=== PATIENT | male | born 1990 | race Caucasian/White ===

== ENCOUNTER 2021-12-06 13:57 | Emergency (ER) | payer OTHER ==
[2021-12-06] MEDS ORDERED: DEXAMETHASONE SOD PHOSPHATE 10 MG/ML 1 ML VIAL IM STA (15:23)
[2021-12-06] MEDS ORDERED: methocarbamoL 500 MG TAB PO ONE (15:23)
--- NOTE | 2021-12-06 16:17 | XR ---
EXAMINATION TYPE: XR cervical spine comp DATE OF EXAM: 12/06/2021 3:34 PM INDICATION: Patient age:Male; 31 years old; Reason for study: Pain; COMPARISON: None TECHNIQUE: The cervical spine was imaged in 4 projections AP lateral and bilateral obliques. FINDINGS: There is straightening of the normal cervical alignment. No evidence of acute fracture. The neural fo ramen are grossly patent. The odontoid process is intact. Visualized portions of the lungs and soft t issues are unremarkable. IMPRESSION: 1. No fracture or dislocation. 2. Straightening of the cervical alignment.
--- NOTE | 2021-12-06 16:38 | ED ---
Neck Injury/Pain HPI - General Chief Complaint: Neck Pain/Injury Stated Complaint: Neck/arm pain/numbness Time Seen by Provider: 12/06/21 15:19 Mode of arrival: ambulatory Limitations: no limitations - History of Present Illness Initial Comments: This is a 31-year-old male who presents to the emergency department for neck pain and right arm numbness/tingling. Patient states that this has been present for about a week. He did have similar symptoms years ago and went to a chiropractor. He found no relief with a chiropractor, but states that the symptoms ended up resolving on their own. He has never been evaluated by neurology or neurosurgery. He tried taking some of his 's Flexeril without any relief and has also tried taking ibuprofen and Tylenol, which are also not improving his symptoms. States that the numbness in the right arm is worse when he bends down. Denies any fevers, chills, sore throat, cough, dyspnea, chest pain, palpitations, abdominal pain, nausea, vomiting, diarrhea, back pain, or headaches. MD Complaint: neck pain Onset/Timin -: week(s) - Related Data Previous Rx's Medication Instructions Recorded methocarbamoL [Robaxin] 1,500 mg PO QID PRN #20 tab 12/06/21 predniSONE 50 mg PO QAM 5 Days #5 tablet 12/06/21 Allergies Allergy/AdvReac Type Severity Reaction Status Date / Time No Known Allergies Allergy Verified 12/06/21 14:33 Review of Systems ROS Statement: Those systems with pertinent positive or pertinent negative responses have been documented in the HPI. ROS Other: All systems not noted in ROS Statement are negative. Past Medical History Past Medical History: No Reported History History of Any Multi-Drug Resistant Organisms: None Reported Past Surgical History: Orthopedic Surgery Additional Past Surgical History / Comment(s): knee surgery Past Psychological History: No Psychological Hx Reported Smoking Status: Vaper Past Alcohol Use History: None Reported Past Drug Use History: None Reported General Exam Limitations: no limitations General appearance: alert, in no apparent distress Head exam: Present: atraumatic, normocephalic, normal inspection Neck exam: Present: normal inspection, full ROM, other (Negative axial loading of the C-spine). Absent: tenderness, meningismus, lymphadenopathy Respiratory exam: Present: normal lung sounds bilaterally. Absent: respiratory distress, wheezes, rales, rhonchi, stridor Cardiovascular Exam: Present: regular rate, normal rhythm, normal heart sounds. Absent: systolic murmur, diastolic murmur, rubs, gallop, clicks Neurological exam: Present: alert, oriented X3, CN II-XII intact Psychiatric exam: Present: normal affect, normal mood Skin exam: Present: warm, dry, intact, normal color. Absent: rash Course Vital Signs 12/06/21 12/06/21 14:30 16:50 Temperature 98.4 F 98.8 F Pulse Rate 72 78 Respiratory 16 18 Rate Blood Pressure 120/58 121/68 O2 Sat by Pulse 98 98 Oximetry Medical Decision Making - Medical Decision Making This is a 31-year-old male who presents emergency department for neck pain. Cervical spine x-ray obtained revealing no acute abnormalities. Patient given IM Decadron and Robaxin. She noted minimal relief after medication treatment. Discussed that this may be related to swelling in the neck causing cervical impingement. Prescription for prednisone and Robaxin sent to the pharmacy. Advised to avoid taking other anti-inflammatories with the prednisone, and to begin taking antiinflammatories after he finishes the prednisone. He can take Tylenol with both the prednisone and other anti-inflammatories. The Robaxin can be taken 3-4 times daily. Advised him that this may make him sleepy/groggy and he should avoid taking it if he plans on driving or leaving the house. Return precautions reviewed in depth, the patient is instructed to return to the emergency department with any new, worsening, or concerning symptoms. Patient verbalized understanding. This case was discussed in detail with the attending ED physician. Presentation, findings, and treatment plan discussed in detail as well. - Radiology Data Radiology results: report reviewed, image reviewed Disposition Clinical Impression: Cervical nerve root impingement Disposition: HOME SELF-CARE Instructions (If sedation given, give patient instructions): Cervical Strain (ED), Cervical Radiculopathy (ED), Neck Pain (ED) Additional Instructions: Return to the emergency department with any new, worsening, or concerning symptoms. Take the prednisone for 5 days. Do not take ibuprofen or any other anti-inflammatories with this. After finishing the prednisone, begin taking other anti-inflammatories again. Take Tylenol with the prednisone and anti- inflammatories. You can take the muscle relaxer, Robaxin, up to 4 times daily. If it makes you sleepy/groggy, do not take it when you plan to drive or leave home. Prescriptions: predniSONE 50 mg PO QAM 5 Days #5 tablet methocarbamoL [Robaxin] 1,500 mg PO QID PRN #20 tab PRN Reason: Pain Is patient prescribed a controlled substance at d/c from ED?: No Referrals: Nonstaff,Physician [Primary Care Provider] - 1-2 days
[2021-12-06 16:51] VITALS: BP 121/68; PULSE 78; RESP 18; TEMP 98.8
== END 2021-12-06 16:50 | disposition home or self-care (01) ==
LOC: EC 13:57
DX: M54.2 Cervicalgia (principal); F17.209 Nicotine dependence, unspecified, with unspecified nicotine-induced disorders
CPT/HCPCS: 72050; 99283; 96372; J1100

== ENCOUNTER 2022-07-11 09:34 | Emergency (ER) | payer OTHER ==
[2022-07-11 09:41] VITALS: RESP 16; TEMP 98.1
[2022-07-11] MEDS ORDERED: ACET/COD 300 MG/30 MG STARTER PACK 6 TAB BTL PO STA (10:08)
[2022-07-11] MEDS ORDERED: KETOROLAC 15 MG/ML 1 ML VIAL IM STA (10:08)
[2022-07-11] MEDS ORDERED: AMOXIC-POT CLAV 875MG STARTER PACK 2 TAB BTL PO STA (10:08)
[2022-07-11] MEDS ORDERED: LIDOCAINE VISCOUS 2% 15 ML CUP MUCOUS MEM ONE (10:08)
--- NOTE | 2022-07-11 10:48 | ED ---
ENT HPI - General Chief complaint: Dental/Oral Stated complaint: Dental issue Time Seen by Provider: 07/11/22 09:43 Source: patient Mode of arrival: ambulatory Limitations: no limitations - History of Present Illness Initial comments: 31-year-old male patient presents the emergency department for evaluation of left lower dental pain and swelling. Patient states he's had symptoms for the last 3 days. He feels that there is an abscess present. States he has been taking ibuprofen with minimal relief. Denies any fever or chills. Denies any trismus or difficulty swallowing. States he has had trouble with his teeth in the past. He has not yet been to see a dentist. - Related Data Previous Rx's Medication Instructions Recorded methocarbamoL [Robaxin] 1,500 mg PO QID PRN #20 tab 12/06/21 predniSONE 50 mg PO QAM 5 Days #5 tablet 12/06/21 Amoxic-Pot Clav 875-125Mg 1 tab PO Q12HR #20 tablet 07/11/22 [Augmentin 875-125] Allergies Allergy/AdvReac Type Severity Reaction Status Date / Time No Known Allergies Allergy Verified 07/11/22 09:39 Review of Systems ROS Statement: Those systems with pertinent positive or pertinent negative responses have been documented in the HPI. ROS Other: All systems not noted in ROS Statement are negative. Past Medical History Past Medical History: No Reported History History of Any Multi-Drug Resistant Organisms: None Reported Past Surgical History: Orthopedic Surgery Additional Past Surgical History / Comment(s): knee surgery Past Psychological History: No Psychological Hx Reported Smoking Status: Vaper Past Alcohol Use History: None Reported Past Drug Use History: None Reported General Exam Limitations: no limitations General appearance: alert, in no apparent distress, other (This is a well- developed, well-nourished adult male in no acute distress.) ENT exam: Present: normal oropharynx, mucous membranes moist, other (There is poor dentition with multiple broken teeth. Left tooth numbers 18 and 19 are fractured, extensive dental caries, with evidence of abscess over the nuchal surface.). Absent: normal exam Respiratory exam: Present: normal lung sounds bilaterally. Absent: respiratory distress, wheezes, rales, rhonchi, stridor Cardiovascular Exam: Present: regular rate, normal rhythm, normal heart sounds. Absent: systolic murmur, diastolic murmur, rubs, gallop, clicks Neurological exam: Present: alert, oriented X3, CN II-XII intact Psychiatric exam: Present: normal affect, normal mood Skin exam: Present: warm, dry, intact, normal color. 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 Physical examination did reveal poor dentition with extensive dental caries and abscess to the periapical space of teeth #18 and 19. Plan was to drain the abscess however after applying lidocaine pledget the abscess spontaneously ruptured and was draining pus and blood. Patient was given first dose of Augmentin and Tylenol with Codeine here. He'll be discharged with prescription for Augmentin. Instructed to follow up with dentistry as soon as possible. He verbalizes understanding and agrees with this plan. Was pt. sent in by a medical professional or institution (JEN Joseph, QUALITY ASSURANCE INTERN, urgent care, hospital, or [facility]...) When possible be specific @ -[No] Did you speak to anyone other than the patient for history (EMS, parent, family, police, friend...)? What history was obtained from this source @ -[No] Did you review nursing and triage notes (agree or disagree)? Why? @ -[I reviewed and agree with nursing and triage notes] Were old charts reviewed (outside hosp., previous admission, EMS record, old EKG, old radiological studies, urgent care reports/EKG's, [facility] records)? Report findings @ -[No old charts were reviewed] Differential Diagnosis (chest pain, altered mental status, abdominal pain women, abdominal pain men, vaginal bleeding, weakness, fever, dyspnea, syncope, headache, dizziness, GI bleed, back pain, seizure, CVA, palpatations, mental health)? @ -[not applicable] EKG interpreted by me (3pts min.). @ -[As above] X-rays interpreted by me (1pt min.). @ -[None done] CT interpreted by me (1pt min.). @ -[None done] U/S interpreted by me (1pt. min.). @ -[None done] What testing was considered but not performed or refused? (CT, X-rays, U/S, labs)? Why? @ -[None] What meds were considered but not given or refused? Why? @ -[None] Did you discuss the management of the patient with other professionals (professionals i.e. , PA, QUALITY ASSURANCE INTERN, lab, RT, psych nurse, drug abuse social worker, ticket printer, teacher, credit risk review officer, caser)? Give summary @ -My attending physician Dr. Parry. Was smoking cessation discussed for >3mins.? @ -[No] Was critical care preformed (if so, how long)? @ -[No] Were there social determinants of health that impacted care today? How? (Homelessness, low income, unemployed, alcoholism, drug addiction, transportation, low edu. Level, literacy, decrease access to med. care, intermediate, rehab)? @ -[No] Was there de-escalation of care discussed even if they declined (Discuss DNR or withdrawal of care, Hospice)? DNR status @ -[No] What co-morbidities impacted this encounter? (DM, HTN, Smoking, COPD, CAD, Cancer, CVA, ARF, Chemo, Hep., AIDS, mental health diagnosis, sleep apnea, morbid obesity)? @ -[None] Was patient admitted / discharged? Hospital course, mention meds given and route , prescriptions, significant lab abnormalities, going to OR and other pertinent info. @ -Discharged home to follow up with dentistry. Did provide low/no cost options in case he does not have insurance coverage. Given starter pack of Augmentin and Tylenol #3. Given prescription for Augmentin. Instructed to follow up as soon as possible with dentist. Undiagnosed new problem with uncertain prognosis? @ -[No] Drug Therapy requiring intensive monitoring for toxicity (Heparin, Nitro, Insulin, Cardizem)? @ -[No] Were any procedures done? @ -[No] Diagnosis/symptom? @ -Dental abscess Acute, or Chronic, or Acute on Chronic? @ -Acute Uncomplicated (without systemic symptoms) or Complicated (systemic symptoms)? @ -Uncomplicated. Side effects of treatment? @ -[No] Exacerbation, Progression, or Severe Exacerbation? @ -[No] Poses a threat to life or bodily function? How? (Chest pain, [place], [place], pneumonia, PE, COPD, DKA, ARF, appy, cholecystitis, CVA, Diverticulitis, Homicidal, Suicidal, threat to staff... and all critical care pts) @ -[No] Disposition Clinical Impression: Dental abscess Disposition: HOME SELF-CARE Condition: Good Instructions (If sedation given, give patient instructions): Dental Abscess (ED) Additional Instructions: Complete antibiotic prescription in full. Alternate Tylenol and Motrin for pain control. Use pain medication given in ER sparingly for severe pain. Follow up with PCP and dentist as soon as possible. Return to ER for any new, worsening, or concerning symptoms. Please follow up with the [facility] dental clinic. [facility] [place] [address]. Phone number for new patients or [phone] for existing patients. [facility]. Must pay for x-rays then services are free. Call for an appoitnment. Prescriptions: Amoxic-Pot Clav 875-125Mg [Augmentin 875-125] 1 tab PO Q12HR #20 tablet Is patient prescribed a controlled substance at d/c from ED?: No Referrals: None,Stated [Primary Care Provider] - 1-2 days Time of Disposition: 10:48 Decision to Admit Reason: Admit from EC Decision Date: 07/11/22 Decision Time: 10:42
[2022-07-11 11:11] VITALS: BP 130/68; PULSE 70
== END 2022-07-11 11:11 | disposition home or self-care (01) ==
LOC: EC 09:34
DX: K04.7 Periapical abscess without sinus (principal); F17.290 Nicotine dependence, other tobacco product, uncomplicated
CPT/HCPCS: 99282; 96372; J1885

== ENCOUNTER 2023-04-21 15:28 | Emergency (ER) | payer OTHER ==
[2023-04-21] MEDS ORDERED: LIDOCAINE 1% INJ 10MG/ML (20 ML MDV) SQ ONE (15:34)
[2023-04-21] MEDS ORDERED: DIPH,PERTUS(ACELL)TETVAC-LF 0.5 ML VIAL IM ONE (15:34)
[2023-04-21] MEDS ORDERED: KETOROLAC 15 MG/ML 1 ML VIAL IM STA (16:21)
[2023-04-21] MEDS ORDERED: ACETAMINOPHEN TAB 325 MG TAB PO STA (16:21)
--- NOTE | 2023-04-21 16:40 | ED ---
General Adult HPI - General Chief complaint: Wound/Laceration Stated complaint: finger laceration-[facility] Time Seen by Provider: 04/21/23 16:05 Source: patient, RN notes reviewed Mode of arrival: ambulatory Limitations: no limitations - History of Present Illness Initial comments: 32-year-old male presents emergency department chief complaint of right thumb laceration. 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 He is unsure of the date of his last tetanus vaccination. He reports appropiate range of motion but it is painful. - Related Data Previous Rx's Medication Instructions Recorded methocarbamoL [Robaxin] 1,500 mg PO QID PRN #20 tab 12/06/21 predniSONE 50 mg PO QAM 5 Days #5 tablet 12/06/21 Amoxic-Pot Clav 875-125Mg 1 tab PO Q12HR #20 tablet 07/11/22 [Augmentin 875-125] Allergies Allergy/AdvReac Type Severity Reaction Status Date / Time No Known Allergies Allergy Verified 04/21/23 15:35 Review of Systems ROS Statement: Those systems with pertinent positive or pertinent negative responses have been documented in the HPI. ROS Other: All systems not noted in ROS Statement are negative. Past Medical History Past Medical History: No Reported History History of Any Multi-Drug Resistant Organisms: None Reported Past Surgical History: Orthopedic Surgery Additional Past Surgical History / Comment(s): knee surgery Past Psychological History: No Psychological Hx Reported Smoking Status: Vaper Past Alcohol Use History: None Reported Past Drug Use History: None Reported General Exam Limitations: no limitations General appearance: alert, in no apparent distress Head exam: Present: atraumatic, normocephalic, normal inspection Respiratory exam: Present: normal lung sounds bilaterally. Absent: respiratory distress, wheezes, rales, rhonchi, stridor Cardiovascular Exam: Present: regular rate, normal rhythm, normal heart sounds. Absent: systolic murmur, diastolic murmur, rubs, gallop, clicks Extremities exam: Present: full ROM, tenderness, normal capillary refill, other (radial pulses 2+, sensation intact, 1 cm laceration to the dorsal aspect of the right thumb at MCP, full range of motion) Neurological exam: Present: alert, oriented X3 Psychiatric exam: Present: normal affect, normal mood Skin exam: Present: warm, dry, normal color, other (1 cm laceration at the dorsal aspect of the right first digit at MCP) Course Vital Signs 04/21/23 04/21/23 15:34 17:22 Temperature 98 F 98.1 F Pulse Rate 74 61 Respiratory 18 16 Rate Blood Pressure 125/78 123/81 O2 Sat by Pulse 98 100 Oximetry Procedures - Laceration Laceration #1 Consent Obtained: verbal consent Indication: laceration Site: hand Size (cm): 1 Description: linear Depth: simple, single layer Anesthetic Used: lidocaine 1% Anesthesia Technique: nerve block Pre-repair: wound explored Size of Sutures: 5-0 Number of Sutures: 2 Technique: simple, interrupted Patient Tolerated Procedure: well, no complications Medical Decision Making - Medical Decision Making Was pt. sent in by a medical professional or institution (Dr. PA, ETHNIC ORIGINS TEACHER, urgent care, hospital, or [facility]...) When possible be specific @ -No Did you speak to anyone other than the patient for history (EMS, parent, family, police, friend...)? What history was obtained from this source @ -No Did you review nursing and triage notes (agree or disagree)? Why? @ -I reviewed and agree with nursing and triage notes Were old charts reviewed (outside hosp., previous admission, EMS record, old EKG, old radiological studies, urgent care reports/EKG's, [facility] records)? Report findings @ -No old charts were reviewed Differential Diagnosis (chest pain, altered mental status, abdominal pain women, abdominal pain men, vaginal bleeding, weakness, fever, dyspnea, syncope, headache, dizziness, GI bleed, back pain, seizure, CVA, palpatations, mental health, musculoskeletal)? @ -Differential Musculoskeletal Muscular strain, contusion, ligament sprain, fracture, arthritis, septic arthritis, bursitis, cellulitis, muscle spasm, nerve compression, DVT, arterial occlusion, herpes zoster, electrolyte abnormality, tumor.... This is not meant to be in all inclusive list EKG interpreted by me (3pts min.). @ -None X-rays interpreted by me (1pt min.). @ -XR right thumb shows no evidence of acute osseous normality, no evidence of foreign body CT interpreted by me (1pt min.). @ -None done U/S interpreted by me (1pt. min.). @ -None done What testing was considered but not performed or refused? (CT, X-rays, U/S, labs)? Why? @ -None What meds were considered but not given or refused? Why? @ -None Did you discuss the management of the patient with other professionals (professionals i.e. , PA, ETHNIC ORIGINS TEACHER, lab, RT, psych nurse, social contact worker, mixing house operator, teacher, consumer safety officer, housing case manager)? Give summary @ -No Was smoking cessation discussed for >3mins.? @ -No Was critical care preformed (if so, how long)? @ -No Were there social determinants of health that impacted care today? How? (Homelessness, low income, unemployed, alcoholism, drug addiction, davis sportation, low edu. Level, literacy, decrease access to med. care, care home, rehab)? @ -No Was there de-escalation of care discussed even if they declined (Discuss DNR or withdrawal of care, Hospice)? DNR status @ -No What co-morbidities impacted this encounter? (DM, HTN, Smoking, COPD, CAD, Cancer, CVA, ARF, Chemo, Hep., AIDS, mental health diagnosis, sleep apnea, morbid obesity)? @ -None Was patient admitted / discharged? Hospital course, mention meds given and route, prescriptions, significant lab abnormalities, going to OR and other pertinent info. @ -Discharged. Patient presented to emergency department chief complaint of laceration on the dorsal aspect of the right thumb. X-ray was obtained which shows no acute osseous abnormality, no evidence of radiopaque foreign body. NVI, wound was cleaned and repaired with sutures. Patient up-to-date on his tetanus vaccination. Patient stable at time of discharge. Case discussed with Dr. Cooper. Undiagnosed new problem with uncertain prognosis? @ -No Drug Therapy requiring intensive monitoring for toxicity (Heparin, Nitro, Insulin, Cardizem)? @ -No Were any procedures done? @ -laceration repair Diagnosis/symptom? @ -laceration Acute, or Chronic, or Acute on Chronic? @ -acute Uncomplicated (without systemic symptoms) or Complicated (systemic symptoms)? @ -Uncomplicated Side effects of treatment? @ -No Exacerbation, Progression, or Severe Exacerbation? @ -No Poses a threat to life or bodily function? How? (Chest pain, [place], [place], pneumonia, PE, COPD, DKA, ARF, appy, cholecystitis, CVA, Diverticulitis, Homicidal, Suicidal, threat to staff... and all critical care pts) @ -No Disposition Clinical Impression: Laceration Disposition: HOME SELF-CARE Condition: Stable Instructions (If sedation given, give patient instructions): Care For Your Stitches (ED) Additional Instructions: Please have sutures removed in 7 days. Return to the emergency department for new or worsening symptoms. Is patient prescribed a controlled substance at d/c from ED?: No Referrals: None,Stated [Primary Care Provider] - 1-2 days
--- NOTE | 2023-04-21 17:01 | XR ---
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 COMPARISON: None. FINDINGS: There is no acute fracture/dislocation evident in the right,. The joint spaces in the righ t. Appear within normal limits. The overlying soft tissue appears unremarkable without radiodense so ft tissue foreign body seen. IMPRESSION: As above.
[2023-04-21 17:26] VITALS: BP 123/81; PULSE 61; RESP 16; TEMP 98.1
== END 2023-04-21 17:38 | disposition home or self-care (01) ==
LOC: EC 15:28
DX: S61.011A Laceration without foreign body of right thumb without damage to nail, initial encounter (principal); F17.290 Nicotine dependence, other tobacco product, uncomplicated; Z23 Encounter for immunization; W29.0XXA Contact with powered kitchen appliance, initial encounter; Y99.0 Civilian activity done for income or pay
CPT/HCPCS: 73140; 90715; 99283; 90471; 96372; 12001; J2001; J1885